=== PATIENT | male | born 1975 | race Caucasian/White ===

== ENCOUNTER 2017-01-05 09:44 | Emergency (ER) | payer OTHER ==
[~2017-01-05] VITALS: Ht 180.3 cm; Wt 78.0 kg
[2017-01-05 10:09] LABS: BASOPHILS 1.2 % (0.0-2.0); EOSINOPHILS 1.6 % (0.0-3.0); HEMATOCRIT 39.5 % (42.0-52.0); HEMOGLOBIN 13.9 gm/dL (14.0-18.0); LYMPHOCYTES 25.5 % (24.0-44.0); MANUAL DIFF NO; MCH 30.8 pg (26.0-34.0); MCHC 35.2 g/dL (28.0-37.0); MCV 87.3 fL (80.0-100.0); MONOCYTES 7.2 % (1.0-8.0); PLATELET COUNT 286 thou/uL (150-400); POLYS 64.5 % (36.0-66.0); RBC 4.53 mil/uL (4.50-6.00); RDW 13.4 % (10.5-14.5); WBC 7.7 thou/uL (4.0-11.0)
[2017-01-05 10:38] LABS: CALCIUM 8.4 mg/dL (8.5-10.1); CREATININE 0.7 mg/dL (0.7-1.3); POTASSIUM 3.6 mmol/L (3.5-5.1)
[2017-01-05 10:40] LABS: URINE BILIRUBIN NEGATIVE (Negative); URINE BLOOD 1+ (Negative); URINE COLOR YELLOW; URINE GLUCOSE-RANDOM* NEGATIVE (Negative); URINE KETONES NEGATIVE (Negative); URINE NITRITE NEGATIVE (Negative); URINE PROTEIN (DIPSTICK) NEGATIVE (Negative); URINE UROBILINOGEN 0.2 E.U./dl (0.2-1.0)
[2017-01-05 10:42] LABS: ALBUMIN 3.7 g/dL (3.4-5.0); TOTAL BILIRUBIN 0.4 mg/dL (<0.1-1.0); TOTAL PROTEIN 7.2 g/dL (6.4-8.2)
[2017-01-05 10:59] LABS: CASTS None Seen /LPF (None Seen); CRYSTALS None Seen /LPF (None Seen); SQUAMOUS None Seen /LPF (0-3); URINE RBC 0-2 Rare /HPF (0-2); URINE WBC 0-5 Rare /HPF (0-5)
[2017-01-05 11:00] LABS: BACTERIA 1-9 Few /HPF (None Seen)
[2017-01-05] MEDS ORDERED: CIPROFLOXACIN500 M1 PO (13:34)
[2017-01-05] MEDS ORDERED: NORCO 5-325 TA1 EACH PO (13:40)
[2017-01-05 13:57] VITALS: BP 113/74
== END 2017-01-05 14:00 | disposition home or self-care (01) ==
LOC: ER 09:44
PROVIDERS: Nurse Practitioner Family
DX: N39.0 Urinary tract infection, site not specified (principal); K42.9 Umbilical hernia without obstruction or gangrene

== ENCOUNTER 2017-11-08 00:51 | Inpatient (IN) | payer OTHER ==
[~2017-11-08] VITALS: Ht 170.2 cm; Wt 93.4 kg
[2017-11-08] VITALS (11 sets, daily range): BP systolic 89–114; BP diastolic 45–75
--- NOTE | ~2017-11-08 | S ---
[facility] [place] [address] SURGICAL PATH RPT PROCEDURE Name: JAMISON KERR Room #: 450-P ADM IN M.R.#: [id number] Admission: 11/08/17 Date of : 75 Discharge: Report #: [id number] Path Case #: [id number] PATHOLOGY REPORT COLLECTION DATE: 11/08/2017 RECEIVED DATE: 11/08/2017 SUBMITTING PHYS: Dr. Roman Geronimo, DO OTHER PHYS: SPECIMEN(S) RECEIVED: A.Umbilical hernia contents * * * * * * * * * * * * FINAL DIAGNOSIS: Umbilical hernia contents, repair: - Fibroadipose tissue and fibrovascular connective tissue with moderate congestion as well as reactive changes, compatible with hernia contents. (IUV:rama; 11/09/2017) PATHOLOGIST: Darline Vera M.D. REPORT ELECTRONICALLY SIGNED BY: Darline Vera M.D. DATE/TIME: 11/09/2017 14:13 * * * * * * * * * * * * GROSS PATHOLOGY: Received in formalin labeled "Jamison Kerr and umbilical hernia contents," are two pieces of fibroadipose tissue measuring 7.7 x 4.5 x 0.8 cm and 1.8 x 1.5 x 0.7 cm. No nodules or lesions are identified. Comber Setter tissue is submitted in cassette A1. (SWS; 11/08/2017) CLINICAL HISTORY: Umbilical hernia contents INITIAL CPT CODE(S): A; 87943 Professional services performed by [facility] at [facility] [address], [place] [address] Technical services performed by [facility] at [address] [place] [id number]. [facility] [address] [place] [address] SURGICAL PATH RPT PROCEDURE Name: JAMISON KERR Room #: 450-P ADM IN M.R.#: [id number] Admission: 11/08/17 Date of : 75 Discharge: Report #: [id number] Path Case #: [id number] [address] PHONE: [phone] DIRECTOR: Bala Brown M.D. * * * END OF REPORT * * *
--- NOTE | ~2017-11-08 | EKG ---
[place] [address] [facility] [employer] [address] ELECTROCARDIOGRAM REPORT Name: CANDICE ESTRADA Room #: 450-P [facility] M.R.#: [id number] Admission: 11/08/17 Attend Phys: Roman Vargas Discharge: Date of : 75 Report #: [id number] THIS REPORT FOR: //name// [facility] ED Test Date: 2017-11-08 Test Time: 01:14:14 Pat Name: CANDICE ESTRADA Department: Room: [facility] Gender: M Complaints Coordinator: MIA : 1975 Requested By: Kevin Fisher Order Number: [id number] MD: Alexi Henriquez Measurements Intervals Pioneer Rate: 66 P: 45 MO: 145 QRS: -3 QRSD: 100 T: 13 QT: 376 QTc: 394 Interpretive Statements Sinus rhythm Baseline wander in lead(s) I,III,aVR,aVL,aVF No previous ECG available for comparison Electronically Signed On 11-08-2017 8:16:37 CDT by Alexi Henriquez [email or web address] <ELECTRONICALLY SIGNED> By: Alexi Henriquez MD, [facility] 11/08/17 0816 0114 0114 Alexi Henriquez MD, [facility] /EPI
[~2017-11-08 00:51] MED LIST: CIPROFLOXACIN500 M1 PO; NORCO 5-325 TA1 EACH PO
[2017-11-08 01:20] LABS: ABSOLUTE NEUTROPHILS 5.9 thou/uL (1.4-8.2); EOSINOPHILS 1.4 % (0.0-3.0); HEMATOCRIT 41.1 % (42.0-52.0); HEMOGLOBIN 13.9 gm/dL (14.0-18.0); LYMPHOCYTES 31.7 % (24.0-44.0); MCH 29.6 pg (26.0-34.0); MCHC 33.8 g/dL (28.0-37.0); MCV 87.6 fL (80.0-100.0); MONOCYTES 7.9 % (1.0-8.0); PLATELET COUNT 290 thou/uL (150-400); RBC 4.69 mil/uL (4.50-6.00); RDW 13.4 % (10.5-14.5); WBC 10.2 thou/uL (4.0-11.0)
[2017-11-08 01:27] LABS: ANION GAP 12 mmol/L (7-16); BUN 20 mg/dL (7-18); CALCIUM 8.8 mg/dL (8.5-10.1); CHLORIDE 102 mmol/L (98-107); CO2 27 mmol/L (21-32); CREATININE 0.9 mg/dL (0.7-1.3); GLUCOSE 130 mg/dL (74-106); POTASSIUM 3.9 mmol/L (3.5-5.1); SODIUM 141 mmol/L (136-145)
[2017-11-08 01:37] LABS: LIPASE 88 U/L (73-393); SGOT 26 U/L (15-37); SGPT 37 U/L (30-65); TOTAL BILIRUBIN 0.4 mg/dL (<0.1-1.0); TOTAL PROTEIN 7.7 g/dL (6.4-8.2); TROPONIN-I < 0.04 ng/mL (<0.06)
[2017-11-09 03:26] VITALS: BP 93/55
[2017-11-09] MEDS ORDERED: HYDROCODON-ACE1 EAC7 PO (07:36)
[2017-11-09] MEDS ORDERED: ONDANSETRON HCL4 M2 PO (07:36)
[2017-11-09] MEDS ORDERED: PEPCID20 MG PO (07:36)
[2017-11-09 08:00] VITALS: BP 89/56
[2017-11-09 10:10] VITALS: BP 89/56
== END 2017-11-09 14:45 | disposition home or self-care (01) | DRG 354 ==
LOC: ER → 4W 03:26 → EROBS 03:26 → 4W 03:49 → ENTRNSPT 11-09 14:04 → EDTRNSPTSTS 11-09 14:08 → 4W 11-09 14:45
PROVIDERS: Emergency Medicine
PROC: 0WUF4JZ Supplement Abdominal Wall with Synthetic Substitute, Percutaneous Endoscopic Approach (ICD-10-PCS; principal; 2017-11-08)
DX: K42.0 Umbilical hernia with obstruction, without gangrene (principal); N39.0 Urinary tract infection, site not specified; K59.00 Constipation, unspecified
CPT/HCPCS: 10040; 50010; 50249; 50386; 50555; 50558; 50962; 50980; 50984; 52265; 53307; 53310; 54022; 54118; 56462; 56525; 56526; 57092